=== PATIENT | male | born 1980 | race Caucasian/White ===

== ENCOUNTER 2021-12-02 11:10 | Emergency (ER) | payer BC ==
[~2021-12-02] VITALS: Ht 182.9 cm; Wt 114.0 kg
[~2021-12-02 11:10] MED LIST: AZITHROMYCIN250 MG PO; MEDROL4 M1 PO; SYMBICORT1 AE1 IN; TAM75CAP OR; TESSALON PER100 MG PO; ZESTRIL10 M1 PO
[2021-12-02 11:32] VITALS: BP 151/89
[2021-12-02] MEDS ORDERED: ZESTRIL10 M1 PO (11:53)
[2021-12-02 12:17] VITALS: BP 116/75
[2021-12-02 12:31] VITALS: BP 134/76
[2021-12-02 12:46] VITALS: BP 114/71
[2021-12-02] MEDS ORDERED: CEPHALEXIN500 MG PO (14:13)
[2021-12-02 14:27] VITALS: BP 114/71
== END 2021-12-02 15:15 | disposition home or self-care (01) | DRG 605 ==
LOC: ED 11:10
PROC: 0HQGXZZ Repair Left Hand Skin, External Approach (ICD-10-PCS; principal; 2021-12-02)
DX: S61.412A Laceration without foreign body of left hand, initial encounter (principal); I10 Essential (primary) hypertension; W27.8XXA Contact with other nonpowered hand tool, initial encounter; Y93.89 Activity, other specified; Y92.89 Other specified places as the place of occurrence of the external cause; Y99.0 Civilian activity done for income or pay